=== PATIENT | female | born 1940 | race Caucasian/White ===

== ENCOUNTER 2020-02-29 13:41 | Observation (INO) ==
[2020-02-29 14:19] LABS: Basophils % 0.3 %; Eosinophils # 0.1 K/mcL (0.0-0.6); Eosinophils % 1.3 %; Hematocrit 34.1 % (35.3-44.9); Hemoglobin 11.7 g/dL (11.5-15.4); Immature Granulocytes % 0.3 % (0-4); Lymphocytes # 1.6 K/mcL (0.6-4.6); Lymphocytes % 26.1 %; Mean Corpuscular HGB Conc 34.3 g/dL (31.6-35.5); Mean Corpuscular Hemoglobin 31.5 pg (28.0-33.3); Mean Corpuscular Volume 91.9 fL (83.0-100.0); Mean Platelet Volume 11.6 fL (9.4-12.4); Monocytes # 0.8 K/mcL (0.0-1.3); Monocytes % 12.2 %; Neutrophils # 3.7 K/mcL (1.6-8.9); Platelet Count 173 K/mcL (140-400); Red Blood Count 3.71 M/mcL (3.82-4.97); Red Cell Distribution Width 14.1 % (11.5-14.5); Segmented Neutrophils % 59.8 %; White Blood Count 6.2 K/mcL (4.3-11.1)
[2020-02-29 14:26] LABS: Prothrombin Time 11.6 Seconds (9.4-12.1)
[2020-02-29 14:29] LABS: Activated Partial Thrombo Time 33.4 Seconds (26.0-36.0)
[2020-02-29 14:34] LABS: Alanine Aminotransferase 8 Units/L (7-52); Albumin 3.9 g/dL (3.5-5.7); Albumin/Globulin Ratio 2.1 (1.1-2.2); Alkaline Phosphatase 43 Units/L (34-104); Aspartate Amino Transferase 12 Units/L (13-39); BUN/Creatinine Ratio 23 (6-26); Bilirubin,Direct 0.1 mg/dL (0.0-0.2); Bilirubin,Indirect 0.4 mg/dL (0.0-1.0); Bilirubin,Total 0.5 mg/dL (0.3-1.0); Blood Urea Nitrogen 15 mg/dL (8-23); Calcium 9.2 mg/dL (8.6-10.3); Carbon Dioxide 27 mEq/L (23-29); Chloride 100 mEq/L (98-107); Globulin 1.9 g/dL (2.4-3.5); Glucose 88 mg/dL (70-105); Osmolality,Calculated 282 (280-300); Potassium 4.7 mEq/L (3.5-5.1); Sodium 136 mEq/L (136-145); Total Protein 5.8 g/dL (6.4-8.9); eGFR For African Americans > 60 (> 60); eGFR For Non-African Americans > 60 (> 60)
[2020-02-29 14:37] LABS: Troponin I < 0.03 ng/mL (< 0.04)
[2020-02-29] MEDS ORDERED: Naloxone 0.4 MG/ML INJ IVP PRN (16:18)
[2020-02-29] MEDS ORDERED: Ondansetron 4 MG/2 ML VIAL IVP PRN (16:18)
[2020-02-29] MEDS ORDERED: MOM Conc 10 ML UD.LIQ PO PRN (16:18)
[2020-02-29] MEDS ORDERED: Acetaminophen 325 MG TABLET PO PRN (16:18)
[2020-02-29] MEDS ORDERED: Perflutren Lipid Microsphere 1.3 ML in 0.9 % Sodium Chloride 8.7 ML IVP PRN (16:21)
[2020-02-29] MEDS ORDERED: *HR* HYDROcodone/Acet 5/325 mg TABLET PO PRN (17:27)
[2020-02-29] MEDS ORDERED: *HR* Heparin 5,000 UNIT/ML VIAL SQ SCH (18:00)
[2020-02-29] MEDS: *HR* Enoxaparin 40 MG/0.4 ML SYRINGE SQ SCH (18:25)
[2020-02-29] MEDS: Furosemide 20 MG TABLET PO SCH (18:25)
[2020-02-29] MEDS: Divalproex (12 HR) 250 MG TABLET PO SCH (20:42)
[2020-02-29] MEDS: traZODone 50 MG TABLET PO SCH (20:42)
[2020-02-29] MEDS: Gabapentin 400 MG CAPSULE PO SCH (20:42)
[2020-02-29] MEDS: clonazePAM 0.5 MG TABLET PO SCH (20:43)
[2020-02-29 23:05] LABS: Bilirubin,Urine Negative (Negative); Blood,Urine Small (Negative); Clarity,Urine Clear (Clear); Color,Urine Yellow (Yellow); Glucose,Urine (UA) Normal (Normal); Ketones,Urine Negative (Negative); Leukocyte Esterase,Urine Trace (Negative); Nitrite,Urine Negative (Negative); PH,Urine 5.5 pH Units (5.0-8.0); Protein,Urine Negative (Neg-Trace); Urobilinogen,Urine Normal (Normal)
[2020-02-29 23:24] LABS: Bacteria,Urine Few per hpf (None-Few); Mucus,Urine Few per lpf (None-Few); RBC,Urine 0-3 per hpf (0-3); Squamous Epithelial Cell,Urine Few per hpf (None-Few); WBC,Urine 0-3 per hpf (0-3)
[2020-03-01 05:43] LABS: Hematocrit 30.9 % (35.3-44.9); Hemoglobin 10.7 g/dL (11.5-15.4); Mean Corpuscular HGB Conc 34.6 g/dL (31.6-35.5); Mean Corpuscular Hemoglobin 31.8 pg (28.0-33.3); Platelet Count 147 K/mcL (140-400); Red Blood Count 3.36 M/mcL (3.82-4.97); Red Cell Distribution Width 14.2 % (11.5-14.5); White Blood Count 5.1 K/mcL (4.3-11.1)
[2020-03-01] MEDS: *HR* Enoxaparin 40 MG/0.4 ML SYRINGE SQ SCH (06:08)
[2020-03-01 06:15] LABS: Alanine Aminotransferase 6 Units/L (7-52); Albumin 3.5 g/dL (3.5-5.7); Albumin/Globulin Ratio 2.1 (1.1-2.2); Alkaline Phosphatase 40 Units/L (34-104); Aspartate Amino Transferase 10 Units/L (13-39); BUN/Creatinine Ratio 18 (6-26); Bilirubin,Total 0.4 mg/dL (0.3-1.0); Blood Urea Nitrogen 15 mg/dL (8-23); Calcium 8.7 mg/dL (8.6-10.3); Carbon Dioxide 29 mEq/L (23-29); Chloride 101 mEq/L (98-107); Chol/HDL Ratio 2.2 (0-4.9); Cholesterol 106 mg/dL (< 200); Globulin 1.7 g/dL (2.4-3.5); Glucose 85 mg/dL (70-105); HDL Cholesterol 48 mg/dL (40-59); LDL Cholesterol,Calculated 42 mg/dL (< 100); Magnesium 1.9 mg/dL (1.6-2.6); Osmolality,Calculated 286 (280-300); Potassium 4.2 mEq/L (3.5-5.1); Sodium 138 mEq/L (136-145); Total Protein 5.2 g/dL (6.4-8.9); Triglycerides 82 mg/dL (< 150); eGFR For African Americans > 60 (> 60); eGFR For Non-African Americans > 60 (> 60)
[2020-03-01] MEDS: polyethylene glycoL 3350 17 GM POWD.PACK PO SCH (09:28)
[2020-03-01] MEDS: lisinopriL 5 MG TABLET PO SCH (09:28)
[2020-03-01] MEDS: Furosemide 20 MG TABLET PO SCH (09:28)
[2020-03-01] MEDS: cefTRIAXone 2,000 MG in 0.9 % Sodium Chloride Mini Bag 100 ML IVPB SCH (09:28)
[2020-03-01] MEDS: Gabapentin 400 MG CAPSULE PO SCH ×3 (09:28→20:44)
[2020-03-01] MEDS: DilTIAZem CD (24hr) 120 MG CAP.ER.24H PO SCH (09:33)
[2020-03-01] MEDS ORDERED: 0.9 % Sodium Chloride 500 ML IVC ONE ×2 (16:09→16:12)
[2020-03-01] MEDS: 0.9 % Sodium Chloride 1,000 ML IVC SCH (17:05)
[2020-03-01] MEDS: traZODone 50 MG TABLET PO SCH (20:44)
[2020-03-01] MEDS: Divalproex (12 HR) 250 MG TABLET PO SCH (20:44)
[2020-03-01] MEDS: clonazePAM 0.5 MG TABLET PO SCH (20:44)
[2020-03-02] MEDS: 0.9 % Sodium Chloride 1,000 ML IVC SCH ×2 (01:25→09:02)
[2020-03-02] MEDS: *HR* Enoxaparin 40 MG/0.4 ML SYRINGE SQ SCH (06:38)
[2020-03-02 06:52] VITALS: BP 118/73
[2020-03-02 06:55] LABS: Basophils % 0.3 %; Eosinophils % 0.9 %; Hematocrit 30.3 % (35.3-44.9); Hemoglobin 10.1 g/dL (11.5-15.4); Immature Granulocytes % 0.3 % (0-4); Mean Corpuscular HGB Conc 33.3 g/dL (31.6-35.5); Mean Corpuscular Hemoglobin 31.5 pg (28.0-33.3); Mean Corpuscular Volume 94.4 fL (83.0-100.0); Mean Platelet Volume 12.1 fL (9.4-12.4); Monocytes # 0.4 K/mcL (0.0-1.3); Monocytes % 12.2 %; Neutrophils # 1.6 K/mcL (1.6-8.9); Platelet Count 126 K/mcL (140-400); Red Blood Count 3.21 M/mcL (3.82-4.97); Segmented Neutrophils % 46.3 %; White Blood Count 3.4 K/mcL (4.3-11.1)
[2020-03-02 07:00] LABS: Lymphocytes # 1.4 K/mcL (0.6-4.6)
[2020-03-02 07:10] LABS: BUN/Creatinine Ratio 25 (6-26); Blood Urea Nitrogen 16 mg/dL (8-23); Calcium 7.9 mg/dL (8.6-10.3); Carbon Dioxide 26 mEq/L (23-29); Chloride 108 mEq/L (98-107); Glucose 87 mg/dL (70-105); Osmolality,Calculated 293 (280-300); Potassium 4.2 mEq/L (3.5-5.1); Sodium 141 mEq/L (136-145); eGFR For African Americans > 60 (> 60); eGFR For Non-African Americans > 60 (> 60)
[2020-03-02] MEDS: DilTIAZem CD (24hr) 120 MG CAP.ER.24H PO SCH (09:03)
[2020-03-02] MEDS: Gabapentin 400 MG CAPSULE PO SCH (09:03)
[2020-03-02] MEDS: cefTRIAXone 2,000 MG in 0.9 % Sodium Chloride Mini Bag 100 ML IVPB SCH (09:04)
[2020-03-02] MEDS: Furosemide 20 MG TABLET PO SCH (09:04)
[2020-03-02] MEDS: lisinopriL 5 MG TABLET PO SCH (09:04)
[2020-03-02] MEDS: polyethylene glycoL 3350 17 GM POWD.PACK PO SCH (09:04)
== END 2020-03-02 12:15 | disposition home health service (06) ==
LOC: EMEROOPIK 13:41 → INPPIK 13:41
PROVIDERS: ADMIT Family Medicine; ATTEND Family Medicine